=== PATIENT | male | born 1955 | race Caucasian/White ===

== ENCOUNTER 2020-09-30 23:35 | Emergency (ER) | payer MEDICARE ==
[~2020-09-30 23:35] MED LIST: ALDACTONE 25MG25 MG PO; AMLODIPINE BESYL5 MG PO; BUSPAR 10MG10 MG PO; BUSPIRONE HCL15 MG PO; CARDIZEM CD360 MG PO; CEFDINIR300 MG PO; COZAAR25 MG PO; DILTIAZEM 24HR360 MG PO; DULERA 100 MCG8.8 GM INH; FLOMAX 0.4 MG0.4 MG PO; FLOMAX0.4 MG PO; GABAPENTIN400 MG PO; GLIPIZIDE10 MG PO; GLUCOTROL 10 MG10 MG PO; IPRAT-ALBUT 0.5-3 ML INH; JARDIANCE10 MG PO; LIPITOR TAB 2020 MG PO; LIPITOR20 MG PO; LOSARTAN POTASS25 MG PO; METOPROLOL SUCC50 MG PO; NORVASC2.5 MG PO; NOVOLOG 10100 UNITS1 SQ; NOVOLOG MI100 UNIT/1 SC; OMEPRAZOLE40 MG PO; SPIRONOLACTONE25 MG PO; TOPROL XL 50 MG50 MG PO; TRESIBA FL100 UNIT/1 SQ; VENTOLIN HFA 66.7 GM INH; VENTOLIN INH; VIT D PO; VITAMIN D250000 UNIT PO; ZANTAC150 MG PO
== END 2020-10-01 01:50 | disposition home or self-care (01) ==
LOC: ER1 23:35
DX: S30.860A Insect bite (nonvenomous) of lower back and pelvis, initial encounter (principal); Z23 Encounter for immunization; W57.XXXA Bitten or stung by nonvenomous insect and other nonvenomous arthropods, initial encounter
CPT/HCPCS: 90471; 90715; 99281

== ENCOUNTER → 2021-01-25 | Outpatient (CLI) | payer MEDICARE | LOC: KOH-I 13:50 | DX: Z87.891 Personal history of nicotine dependence (principal); N28.9 Disorder of kidney and ureter, unspecified | CPT/HCPCS: 71271 ==

== ENCOUNTER → 2021-08-18 | Outpatient (CLI) | payer MEDICARE | LOC: HEART 5 10:09 | DX: J44.9 Chronic obstructive pulmonary disease, unspecified (principal) | CPT/HCPCS: 94060; 94729 ==